=== PATIENT | female | born 1990 | race Caucasian/White ===

== ENCOUNTER 2018-02-23 02:13 | Emergency (ER) | payer OTHER ==
[~2018-02-23] VITALS: Ht 157.5 cm; Wt 57.0 kg
[2018-02-23] MEDS ORDERED: KETOROLAC 60MG/2ML VIAL IM ONE (03:00)
[2018-02-23 03:53] VITALS: BP 140/72
== END 2018-02-23 04:38 | disposition home or self-care (01) ==
LOC: ER 03:43
DX: S33.5XXA Sprain of ligaments of lumbar spine, initial encounter (principal); F17.200 Nicotine dependence, unspecified, uncomplicated; Z98.890 Other specified postprocedural states; X50.9XXA Other and unspecified overexertion or strenuous movements or postures, initial encounter; Y93.89 Activity, other specified; Y92.520 Airport as the place of occurrence of the external cause; Y99.8 Other external cause status
CPT/HCPCS: 96372; 99283; J1885